=== PATIENT | female | born 1985 | race Caucasian/White ===

== ENCOUNTER → 2020-07-18 14:50 | Outpatient (BNVA) | payer MEDICAID, SELFPAY | PROVIDERS: PCP Internal Medicine Geriatric Medicine; Referring Provider Internal Medicine Geriatric Medicine; Visit Provider Internal Medicine Cardiovascular Disease | DX: I25.42 Coronary artery dissection (principal) | CPT/HCPCS: 93005; 99212 ==

== ENCOUNTER → 2021-02-02 13:59 | Outpatient (BNVA) | payer MEDICAID, SELFPAY | PROVIDERS: PCP Internal Medicine Geriatric Medicine; Referring Provider Internal Medicine Geriatric Medicine; Visit Provider Internal Medicine Cardiovascular Disease | DX: I25.42 Coronary artery dissection (principal) | CPT/HCPCS: 93005; 99212 ==

== ENCOUNTER → 2021-03-24 07:27 | Outpatient (REF) | payer MEDICAID, SELFPAY ==
--- NOTE | 2021-03-24 07:30 | CA_ITS ---
Transthoracic Echocardiogram Patient (Last, First, Middle): Charissa Alford E Gender: Female Date of : 1985 Age: 36 Procedure Date: 03/24/2021 Procedure Type: Transthoracic Echocardiogram Location: OP Height: 154.94 cm Weight: 101.61 kg BSA: 1.98 m2 Heart Rate: bpm BP: 126 / 72 mmHg Health Program Analyst: DSFlash Referring MD: Jett Avila MD Symptoms: I42.9 - Cardiomyopathy, unspecified Conclusions: - Normal left ventricular size and systolic function. - There is mildly increased left ventricular wall thickness. - Diastolic function is normal for age. - Normal right ventricular cavity size and systolic function. - No significant valvular or pericardial pathology. Findings Left Ventricle Normal left ventricular size and systolic function. There is mildly increased left ventricular wall thickness. The visually estimated ejection fraction is between 55-60%. There is no evidence of regional wall motion abnormalities. Diastolic function is normal for age. Right Ventricle Normal right ventricular cavity size and systolic function. Atria Both atria are normal in size. Aortic Valve Normal aortic valve structure and function. There is no aortic valve stenosis. There is no aortic valve regurgitation. Mitral Valve Normal mitral valve structure and function. There is no mitral valve regurgitation. There is no mitral valve stenosis. Pulmonic Valve Normal pulmonic valve structure and function. There is no pulmonic valve regurgitation. Tricuspid Valve Normal tricuspid valve structure and function. There is trace tricuspid valve regurgitation. Normal right atrial pressure. There is no evidence of pulmonary hypertension. Great Vessels All visible segments of the aorta are normal in size. The visualized portions of the pulmonary artery and branches are normal. Venous The inferior vena cava is normal in size and collapses greater than 50% with inspiration. Pericardium/Pleural There is no evidence of pericardial effusion. Prior Study Comparison No prior study available for comparison. Measurements 2D Linear Measurements IVSd: 0.95 0.6-0.9/0.6-1.0 cm LVIDd: 4.59 3.9-5.3/4.2-5.9 cm LVIDd Index: 2.32 2.4-3.2/2.2-3.1 cm/m2 LVIDs: 3.00 2.0-3.6 cm LVPWd: 1.05 0.7-1.1 cm LA Diam: 3.90 2.7-3.8/3.0-4.0 cm LAIDs Index: 1.97 1.5-2.3 cm/m2 LV Mass: 196.53 67-162/88-224 g LV Mass Index: 99.26 43-95/49-115 g/m2 LVOT Diam: 2.20 3.0+(-)1.3 cm 2D Systolic Function EF 4C: 64.70 >55% EF 2C: 50.60 >55% EF BiP: 59.90 >55% Mitral Valve MV Pk E: 0.66 MV PK A: 0.52 MV Decel Time: 144.00 E/A: 1.30 E'Lateral: 9.68 E'Medial: 9.25 E/E' Med: 7.10 E/E' Lat: 6.80 PHT: 42.00 MVA PHT: 5.24 Decel Butts: 5.64 Aortic Valve AoV Pk Tino: 1.47 AoV Pk Grad: 9.00 LVOT LVOT Pk Tino: 0.82 LVOT Mn Tino: 0.54 LVOT VTI: 0.15 LVOT Pk Grad: 3.00 LVOT Mn Grad: 1.00 LVOT Diam: 2.20 LVOT Area: 3.80 Diastolic Function MV Pk E: 0.66 MV Pk A: 0.52 E/A: 1.30 E'Medial: 9.25 E/E' Med: 7.10 E' Laterial: 9.68 E/E' Lat: 6.80 Right Ventricle TAPSE (mm): 2.77 Tricuspid Valve TR Pk Tino: 2.80 TR Pk Grad: 31.00 RA Press: 3.00 RVSP: 34.00 Great Vessels Aorta Ao Asc: 2.70 2.1-3.4 cm Updated in Other Vendor System with Status of Final Jett Avila MD electronically signed on 03/26/2021 1:37:26 PM with status of Final
== END ==
LOC: HO.CARD 07:27
PROVIDERS: PCP Internal Medicine Geriatric Medicine; Visit Provider Internal Medicine Cardiovascular Disease
DX: I25.42 Coronary artery dissection (principal); I42.9 Cardiomyopathy, unspecified
CPT/HCPCS: 93306

== ENCOUNTER → 2021-04-26 15:21 | Outpatient (BNVA) | payer MEDICAID, SELFPAY | PROVIDERS: PCP Internal Medicine Geriatric Medicine; Referring Provider Internal Medicine Geriatric Medicine; Visit Provider Internal Medicine Cardiovascular Disease | DX: I25.42 Coronary artery dissection (principal) | CPT/HCPCS: 99212 ==

== ENCOUNTER → 2021-12-06 15:28 | Outpatient (BNVA) | payer MEDICAID, SELFPAY | PROVIDERS: PCP Internal Medicine Geriatric Medicine; Referring Provider Internal Medicine Geriatric Medicine; Visit Provider Internal Medicine Cardiovascular Disease | DX: I25.42 Coronary artery dissection (principal) | CPT/HCPCS: 93005; 99212 ==

== ENCOUNTER 2022-03-07 14:16 | Outpatient (REF) | payer MEDICAID, SELFPAY ==
--- NOTE | ~2022-03-07 | US_ITS ---
EXAMINATION: MM DIAGNOSTIC DIGITAL BREAST TOMOSYNTHESIS, BILATERAL US BREAST TARGETED, RIGHT CLINICAL INFORMATION: Right breast lump 12-1 o'clock position approximately 1 cm from the nipple. Status post trauma. The lifetime risk of breast cancer based on the Tyrer-Cuzick Model is 11.5%. COMPARISON: Mammography: None TECHNIQUE: Digital breast tomosynthesis is performed in both the craniocaudal and mediolateral oblique views along with computer-aided detection (CAD). Synthesized 2D images are generated from the tomosynthesis. Targeted right breast ultrasound. FINDINGS: There are scattered areas of fibroglandular density (ACR BI-RADS breast composition Category b). There are no significant masses, abnormal calcifications, or other abnormalities. At approximately the 12 o'clock retroareolar region there is a hyperechoic structure containing a 4 mm hypoechoic area within its central portion. No internal vascularity is appreciated. No distal sound shadowing or distal sound enhancement is seen. This likely represents a region of fat necrosis. Recommend 6 month follow-up right breast ultrasound only. Results are discussed with the patient at time of visit. US/US breast RT limited IMPRESSION: Palpable abnormality corresponds to a region of probable fat necrosis. ASSESSMENT: BI-RADS 3: Probably Benign. RECOMMENDATION: Right breast ultrasound in 6 months. This patient's information was entered into a reminder system with a target due date for their next mammogram.
--- NOTE | ~2022-03-07 | MM_ITS ---
EXAMINATION: MM DIAGNOSTIC DIGITAL BREAST TOMOSYNTHESIS, BILATERAL TARGETED RIGHT BREAST ULTRASOUND CLINICAL INFORMATION: Right breast lump 12 o'clock - 1 o'clock position, approximately 1 cm from the nipple. Status post trauma. The lifetime risk of breast cancer based on the Tyrer-Cuzick Model is 11.5%. COMPARISON: Mammography: None. TECHNIQUE: Digital breast tomosynthesis is performed in both the craniocaudal and mediolateral oblique views along with computer-aided detection (CAD). Synthesized 2D images are generated from the tomosynthesis. Targeted right breast ultrasound. FINDINGS: There are scattered areas of fibroglandular density (ACR BI-RADS breast composition Category b). There are no significant masses, abnormal calcifications, or other abnormalities. At approximately the 12 o'clock retroareolar region there is a hyperechoic structure containing a 4 mm hypoechoic portion. No internal vascularity is appreciated. No distal sound shadowing or distal sound enhancement is seen. This likely represents a region of fat necrosis. Recommend 6 month follow up right breast ultrasound only. Results are discussed with the patient at time of visit. MM/MM tomosynthesis diagnostic BI IMPRESSION: Palpable abnormality corresponds to a region of probable fat necrosis. ASSESSMENT: BI-RADS 3: Probably benign. RECOMMENDATION: Right breast ultrasound in 6 months. This patient's information was entered into a reminder system with a target due date for their next mammogram.
== END 2022-03-07 14:17 | disposition home or self-care (01) ==
LOC: HO.MAMMO 14:16
PROVIDERS: Visit Provider Family Medicine
DX: N63.15 Unspecified lump in the right breast, overlapping quadrants (principal)
CPT/HCPCS: 76642; 77062; 77066

== ENCOUNTER → 2022-08-15 08:37 | Outpatient (BNVA) | payer MEDICAID, SELFPAY | PROVIDERS: PCP Internal Medicine Geriatric Medicine; Visit Provider Internal Medicine Cardiovascular Disease | DX: I25.42 Coronary artery dissection (principal); I10 Essential (primary) hypertension | CPT/HCPCS: 99212 ==

== ENCOUNTER 2022-08-24 14:27 | Outpatient (REF) | payer MEDICAID, SELFPAY ==
--- NOTE | ~2022-08-24 | MM_ITS ---
EXAMINATION: MM DIAGNOSTIC DIGITAL BREAST TOMOSYNTHESIS, RIGHT US DIAGNOSTIC ULTRASOUND BREAST, RIGHT CLINICAL INFORMATION: Age 37 with probable benign fat necrosis 12:00 retroareolar right breast for follow-up. At time of imaging, patient also notes palpable areas of concern mid upper right breast. Prior history significant right breast trauma related to a fall approximately 6 months ago with ecchymosis right breast. The lifetime risk of breast cancer based on the Tyrer-Cuzick Model is 12%. COMPARISON: Mammography: 03/07/2022, targeted right breast ultrasound 03/07/2022. TECHNIQUE: Patient initially scheduled for targeted follow-up ultrasound. At time of ultrasound exam, patient noted additional palpable concerns right breast which prompted subsequent right mammography following the ultrasound. Digital breast tomosynthesis is performed in both the craniocaudal and mediolateral oblique views along with computer-aided detection (CAD). Synthesized 2D images are generated from the tomosynthesis. Ultrasound right breast is targeted to the prior area of imaging concern periareolar 12:00 position. Additional imaging also performed in the areas of clinical palpable concern noted at time of appointment mid upper right breast. Grayscale imaging and color Doppler are performed without and with harmonics. FINDINGS: There are scattered areas of fibroglandular density (ACR BI-RADS breast composition Category b). The right breast attenuation is slightly decreased from prior exam. There is an oval area of fat necrosis corresponding to palpable concern mid 12:00 position measuring approximately 1.3 x 2.0 cm. There is peripheral higher attenuation rim surrounding a predominant fatty attenuation. Finding is better discerned on current exam. A smaller area of fat necrosis with central fat attenuation is also seen central mid central right breast measuring approximately 1.1 cm. There is no interval suspicious solid mass or architectural abnormality. No abnormal calcifications. No skin thickening or coarsening of the Gen's ligaments. The axilla is unremarkable. Ultrasound retroareolar right breast for follow-up of previously described fat necrosis demonstrates hypoechoic lesion with central cystic area decreased in size from prior ultrasound. Overall dimensions on prior exam are approximately 1.4 x 0.6 cm and on current exam 0.9 x 0.4 cm. Additional imaging in the areas of clinical palpable concern mid upper right breast demonstrates vague oval lesion mid 12:00 position measuring approximately 2.3 cm in length with periphery high attenuation and irregular central lower attenuation. This corresponds to the fat necrosis on mammography. There are other smaller complicated cystic foci in acorn cysts in the prior area of trauma measuring under 2 cm. There is no solid mass or suspicious finding. Results are discussed with the patient at time of visit. Management plan is for continued follow-up surveillance with bilateral diagnostic mammography and right breast ultrasound in 6 months. MM/MM tomosynthesis diagnostic RT IMPRESSION: -Areas of trauma-related fat necrosis corresponding to new areas of palpable concern, largest mid 12:00 position. -No mammographic evidence of malignancy. BI-RADS 3: Probably Benign. ASSESSMENT: BI-RADS 3: Probably Benign RECOMMENDATION: -Bilateral diagnostic mammography and right breast ultrasound in 6 months. This patient's information was entered into a reminder system with a target due date for their next mammogram.
== END 2022-08-24 14:28 | disposition home or self-care (01) ==
LOC: HO.MAMMO 14:27
PROVIDERS: PCP Internal Medicine Geriatric Medicine; Visit Provider Internal Medicine Geriatric Medicine
DX: N63.15 Unspecified lump in the right breast, overlapping quadrants (principal)
CPT/HCPCS: 76642; 77061; 77065

== ENCOUNTER → 2022-11-28 08:59 | Outpatient (BNVA) | payer MEDICAID, SELFPAY | PROVIDERS: PCP Internal Medicine Geriatric Medicine; Referring Provider Internal Medicine Geriatric Medicine; Visit Provider Internal Medicine Cardiovascular Disease | DX: I10 Essential (primary) hypertension (principal); I25.42 Coronary artery dissection | CPT/HCPCS: 93005; 99212 ==

== ENCOUNTER 2023-02-26 14:45 | Outpatient (REF) | payer MEDICAID, SELFPAY ==
--- NOTE | ~2023-02-26 | MM_ITS ---
EXAMINATION: MM DIAGNOSTIC DIGITAL BREAST TOMOSYNTHESIS, BILATERAL CLINICAL INFORMATION: Six-month interval follow-up right breast fat necrosis 12:00 axis from prior breast trauma. Patient due for bilateral screening. COMPARISON: Mammography: 08/24/2022, 02/25/2022. TECHNIQUE: Digital breast tomosynthesis is performed in both the craniocaudal and mediolateral oblique views along with computer-aided detection (CAD). Synthesized 2D images are generated from the tomosynthesis. FINDINGS: There are scattered areas of fibroglandular density (ACR BI-RADS breast composition Category b). There are stable oil cysts in the 12:00 axis of the right breast, middle one third depth. These are benign. There are no suspicious masses, suspicious grouped calcifications, or areas of architectural distortion. The parenchymal pattern is stable from prior exams. MM/MM tomosynthesis diagnostic BI IMPRESSION: Benign oil cysts superior right breast as detailed. No findings suspicious for malignancy. Recommend the patient return to routine annual screening. ASSESSMENT: BI-RADS BI-RADS 2 - Benign Findings RECOMMENDATION: 1 year F/U Results were provided to the patient at time of visit by the technologist. This patient's information was entered into a reminder system with a target due date for their next mammogram.
== END 2023-02-26 14:46 | disposition home or self-care (01) ==
LOC: HO.MAMMO 14:45
PROVIDERS: PCP Internal Medicine Geriatric Medicine; Visit Provider Internal Medicine Geriatric Medicine
DX: N64.1 Fat necrosis of breast (principal)
CPT/HCPCS: 77062; 77066

== ENCOUNTER → 2023-02-26 15:00 | Outpatient (BNV) | payer MEDICAID, SELFPAY | PROVIDERS: PCP Internal Medicine Geriatric Medicine; Visit Provider Radiology Diagnostic Radiology | DX: N60.01 Solitary cyst of right breast (principal) | CPT/HCPCS: 77062; 77066 ==

== ENCOUNTER 2023-02-28 08:44 | Outpatient (REF) | payer MEDICAID, SELFPAY ==
[2023-02-28 11:30] LABS: MANUAL DIFF FLAG NO
[2023-02-28 11:49] LABS: Basophils Absolute Auto 0.1 X10*3/uL (0.0-0.2); Basophils Percent Auto 0.7 % (0-2); Eosinophils Absolute Auto 0.4 X10*3/uL (0.0-0.4); Eosinophils Percent Auto 4.6 % (0-4); Hemoglobin 15.1 g/dl (12.0-16.0); Imm Gran Abs Auto 0.03 X10*3/uL (0.00-0.03); Imm Gran Pct Auto 0.3 % (0.0-0.4); Lymphocytes Absolute Auto 2.2 X10*3/uL (1.2-4.9); Lymphocytes Percent Auto 23.3 % (20-40); Mean Corpuscular HGB Conc 33.6 g/dl (31.0-35.0); Mean Corpuscular Hemoglobin 31.4 pg (27.0-33.0); Mean Corpuscular Volume 93.6 fL (80.0-98.0); Mean Platelet Volume 10.5 fL (9.4-12.3); Monocytes Absolute Auto 0.6 X10*3/uL (0.1-1.2); Monocytes Percent Auto 6.5 % (2-11); Neutrophils Absolute Auto 6.1 x10*3/uL (2.0-8.3); Neutrophils Percent Auto 64.6 % (45-73); Platelet Count 341 X10*3/uL (160-400); Red Blood Count 4.81 X10*6/uL (4.20-5.50); Red Cell Distribution Width 12.6 % (11.0-16.0); White Blood Count 9.4 X10*3/uL (4.8-10.8)
[2023-02-28 11:58] LABS: Cholesterol 171 mg/dL (<200); HDL Cholesterol 58 mg/dL (>40); LDL Cholesterol Calculated 101 mg/dL (<100); Triglycerides 61 mg/dL (<150)
[2023-02-28 11:59] LABS: Estimated Average Glucose 88 mg/dL; Hemoglobin A1C 109.4548 umol/L; Hemoglobin A1c % 4.7 % (<6.0)
== END 2023-02-28 08:45 | disposition home or self-care (01) ==
LOC: HO.HHCL 08:44
PROVIDERS: Visit Provider Internal Medicine Geriatric Medicine
DX: Z00.00 Encounter for general adult medical examination without abnormal findings (principal); Z13.1 Encounter for screening for diabetes mellitus; Z13.220 Encounter for screening for lipoid disorders; E66.9 Obesity, unspecified; I10 Essential (primary) hypertension
CPT/HCPCS: 36415; 80061; 83036; 85025

== ENCOUNTER 2023-03-19 18:20 | Outpatient (REF) | payer MEDICAID, SELFPAY ==
[2023-03-20 15:14] LABS: BV Int Neg Control Negative (Negative); BV Int Pos Control Positive (Positive)
== END 2023-03-19 18:21 | disposition home or self-care (01) ==
LOC: HO.HHCLNP 18:20
PROVIDERS: Visit Provider Nurse Practitioner Family
DX: N89.8 Other specified noninflammatory disorders of vagina (principal)
CPT/HCPCS: 87480; 87510; 87660

== ENCOUNTER 2023-12-27 16:48 | Outpatient (REF) | payer MEDICAID, SELFPAY ==
[2023-12-27 18:05] LABS: Bacterial Vaginosis PCR NEGATIVE (Negative); Candida Group PCR DETECTED (Not Detect); Candida glab krusei PCR NOT DETECTED (Not Detect); Trichomonas vaginalis PCR NOT DETECTED (Not Detect)
== END 2023-12-27 16:49 | disposition home or self-care (01) ==
LOC: HO.HHCLNP 16:48
PROVIDERS: Visit Provider General Practice
DX: N89.8 Other specified noninflammatory disorders of vagina (principal)
CPT/HCPCS: 0352U

== ENCOUNTER 2024-02-12 08:43 | Outpatient (AMB) | payer MEDICAID, SELFPAY ==
[2024-02-12 09:02] VITALS: BP 120/64; PULSE 86; BMI 38.5
--- NOTE | 2024-02-12 09:02 | A.OFFVIS_ITS ---
Vital Signs 02/12/24 09:02 Height 5 ft 1 in Weight 203 lb 11.314 oz BMI 38.5 BP 120/64 Blood Pressure Location Lt brachial Position Sitting Pulse 86 Pulse Source Monitor Intake Visit Reasons: 1 year follow up Rounding Machine Tender Required: No Accompanied by: Self / Same As Patient Allergies No Known Allergies Allergy (Verified 11/28/22 09:00) Medication List - Last Reconciled 02/12/24 by Jett Avila MD amlodipine 10 mg PO DAILY aspirin (Adult Aspirin Regimen) 81 mg PO DAILY metoprolol succinate ER 50 mg PO DAILY semaglutide (weight loss) (Wegovy) mg subcut QWEEK HPI Comments Details: Pleasant 39-year-old female here for follow-up. She has background history of SCAD. She previously had uneventful pregnancies. She has done well with medical management of SCAD in the past. 02/12/24: Here for follow-up. She is on semaglutide for weight loss and has been losing weight. She said her dose was increased recently and she has been more nauseous after that. She has not vomiting but gets nausea after eating. I explained to her that this is likely due to Wegovy. She has no exertional symptoms. No chest pain or significant shortness of breath. She said she gained a lot more weight after she saw us in 11/24/2022 and was getting some shortness of breath going upstairs but this is improving as she is losing weight. Compliant with medications. Blood pressure is well controlled. She is exercising on treadmill. [facility] Surgical History Hx of tonsillectomy Family History Maternal Grandfather Cancer Social History Alcohol intake: current Alcohol intake frequency: holidays/special occasions only Patient Tobacco Use Status: Current someday Tobacco user Substance Use Type: Marijuana Review of Systems Const Denies chills, Denies fatigue, Denies fever(s), Denies frequent falls, Denies weakness, Denies weight gain and Denies weight loss ENT Denies dizziness Card Denies chest pain, Denies leg edema, Denies lightheadedness, Denies palpitations, Denies dyspnea and Denies dyspnea on exertion Resp Denies cough, Denies dyspnea and Denies dyspnea on exertion GI Denies hematochezia Musc Denies abnormal gait, Denies muscle weakness, Denies numbness, Denies radiating pain into limb and Denies tingling Neuro Denies abnormal gait, Denies dizziness, Denies frequent falls, Denies numbness, Denies tingling and Denies weakness Endo Denies fatigue and Denies palpitations Physical Exam Vital Signs: Last Vital Signs Pulse 86 02/12/24 09:02 BP 120/64 02/12/24 09:02 BMI result Body Mass Index 38.5 GENERAL APPEARANCE: in no acute distress, pleasant. NECK: no carotid bruit, no jugular venous distention. SKIN: no suspicious lesions, warm and dry. HEART: no murmurs, regular rate and rhythm. LUNGS: clear to auscultation bilaterally. ABDOMEN: soft, nontender. EXTREMITIES: no edema. PERIPHERAL PULSES: equal. NEUROLOGIC: No gross deficits, AAO X 3 Office Procedures EKG Details: Sinus rhythm 86 beats per minute sinus arrhythmia normal axis, low voltage poor R-wave progression, QTC 449 milliseconds. [id number], Complete Assessment & Plan Assessment & Plan (1) Essential hypertension: Code(s): I10 - Essential (primary) hypertension Category: Medical (2) Spontaneous dissection of coronary artery: Code(s): I25.42 - Coronary artery dissection Category: Medical Plan Pleasant 39-year-old female who is here for follow-up. She has known history of spontaneous coronary artery dissection. She was conservatively managed and has been on metoprolol succinate, aspirin and amlodipine. Blood pressure is well controlled. She has not had any further symptoms since then. She had uneventful pregnancies in between too. She will continue same medications. She is on Wegovy for weight loss. She has some nausea after recent dose increase which is due to Wegovy. No concerning cardiovascular symptoms. She is exercising and losing weight and I have encouraged her to keep exercising. She will see us back in 1 year. Thank you for allowing me to participate in the care of your patient. Please feel free to contact me if you have any questions. Coding Level of Care Code Est Pt Level 4 (12730) Diagnoses Essential hypertension I10 Spontaneous dissection of coronary artery I25.42 CPT Codes EKG - CPT: 70664-[id number], Complete ([id number])
== END 2024-02-12 09:21 | disposition home or self-care (01) ==
LOC: HO.HCSM 08:43
PROVIDERS: PCP Internal Medicine Geriatric Medicine; Referring Provider Internal Medicine Geriatric Medicine; Visit Provider Internal Medicine Cardiovascular Disease
DX: I10 Essential (primary) hypertension (principal); I25.42 Coronary artery dissection
CPT/HCPCS: 93010; 99214

== ENCOUNTER → 2024-02-12 08:43 | Outpatient (BNVA) | payer OTHER, SELFPAY | PROVIDERS: PCP Internal Medicine Geriatric Medicine; Visit Provider Internal Medicine Cardiovascular Disease | DX: I10 Essential (primary) hypertension (principal); I25.42 Coronary artery dissection; R94.31 Abnormal electrocardiogram [ECG] [EKG] | CPT/HCPCS: 93005; 99212 ==

== ENCOUNTER 2024-05-05 14:17 | Outpatient (REF) | payer OTHER, SELFPAY ==
--- NOTE | ~2024-05-05 | US_ITS ---
EXAMINATION: US DIAGNOSTIC ULTRASOUND BREAST, RIGHT CLINICAL INFORMATION: Patient history of fat necrosis from injury to the 12-1 o'clock axis right breast spanning 5-9 cm from the nipple, returning with complaining of palpable abnormality 12:00 axis right breast in similar region as previously seen fat necrosis. This region was first imaged in February 2022, and subsequently imaged August 2022. COMPARISON: Sonography 08/24/2022, 03/07/2023 right breast. Mammography 02/24/2023, 08/24/2022, 03/07/2022. TECHNIQUE: Ultrasound of the right breast is performed with real-time lynch scale imaging and color Doppler. The exam was focused to 10:00 to 2:00 to include the region of palpable concern. FINDINGS: There are no suspicious abnormalities. There is a peripherally calcified oil cyst measuring 8 x 8 x 8 mm in the 12:00 axis of the right breast, 7 cm from nipple, correlating with the focus of palpable concern. This is benign. There are several smaller peripherally calcified round oil cysts in the 10-1 o'clock axis of the right breast in the region of prior injury. There are no suspicious findings identified. Results are provided to the patient at time of visit by the technologist. US/US breast RT limited mamm only IMPRESSION: -No findings right breast suspicious for malignancy. -Palpable focus of concern right breast correlates with a benign oil cyst at the 12:00 axis, measuring 8 mm. Finding is benign. -Recommend the patient begin routine annual screening in February 2025. ASSESSMENT: BI-RADS 2: Benign RECOMMENDATION: Routine annual mammography screening. This patient's information was entered into a reminder system with a target due date for their next mammogram. Electronically signed by: Taqueria Weiss MD 05/05/2024 03:20 PM EDT
== END 2024-05-05 14:18 | disposition home or self-care (01) ==
LOC: HO.MAMMO 14:17
PROVIDERS: PCP Family Medicine; Visit Provider Family Medicine
DX: N63.11 Unspecified lump in the right breast, upper outer quadrant (principal)
CPT/HCPCS: 76642

== ENCOUNTER → 2024-05-05 15:00 | Outpatient (BNV) | payer OTHER, SELFPAY | PROVIDERS: PCP Family Medicine; Visit Provider Radiology Diagnostic Radiology | DX: N63.15 Unspecified lump in the right breast, overlapping quadrants (principal) | CPT/HCPCS: 76642 ==